=== PATIENT | female | born 1955 | race Asian ===

== ENCOUNTER 2018-09-30 01:09 | Emergency (ER) | payer MEDICAID, SELFPAY ==
[2018-09-30 01:10] VITALS: BP 205/86; PULSE 84; RESP 16; TEMP 36.4; O2SAT 100; BMI 30.4
--- NOTE | 2018-09-30 01:53 | CT_ITS ---
STUDY: CT BRAIN WITHOUT CONTRAST REASON FOR EXAM: Female, 63 years old. Headache, elevated blood pressure, pressure behind eyes. History of hypertension and diabetes. RADIATION DOSAGE (If Supplied By Facility): CTDIvol = ( 44.99 ) mGy, DLP = ( 846.73 ) mGycm TECHNIQUE: Transaxial CT imaging of the brain was performed without administration of intravenous contrast material. Individualized dose optimization techniques were used for this CT. COMPARISON: No relevant priors. FINDINGS: Normal soft tissue structures. Probable right frontal skin tach. Normal calvarium. Normal size ventricles and extra-axial spaces for the patient's age. Normal white matter tracts of the cerebral hemispheres. Normal basal ganglia and thalami. Normal brainstem. Normal cerebellum. There is no intracranial hemorrhage. There are no findings of an acute ischemic infarction. Normal visualized paranasal sinuses. The bilateral mastoid air cells are clear. Intracranial arteriosclerosis of the carotid and vertebral arteries. CT/Brain/Head without Contrast IMPRESSION: There is no acute intracranial pathology. Electronically Signed: Natalia Beckman MD at 2:57 EDT , Service support ,
--- NOTE | 2018-09-30 01:53 | EKG12_ITS ---
Test Reason : Blood Pressure : / mmHG Vent. Rate : 081 BPM Atrial Rate : 081 BPM P-R Int : 156 ms QRS Dur : 076 ms QT Int : 392 ms P-R-T Axes : 051 -18 034 degrees QTc Int : 455 ms Normal sinus rhythm Minimal voltage criteria for LVH, may be normal variant Borderline ECG Confirmed by FENG COYLE, RADHA ([id number]), art editor AUGUSTO ALEJANDRE ([id number]) on 10/03/2018 11:39:34 AM Referred By: MARISELA Confirmed By:RADHA TONEY MD
--- NOTE | 2018-09-30 01:53 | RAD_ITS ---
STUDY: X-RAY CHEST REASON FOR EXAM: Female, 63 years old. Chest pain TECHNIQUE: Single AP portable view of the chest. COMPARISON: None. FINDINGS: Mild compression of the basilar parenchyma. There is no focal parenchymal abnormality. There is no demonstrated pleural abnormality. There is mild cardiac enlargement. Normal mediastinum and tricia. Normal visualized pulmonary arteries. There is atherosclerotic calcification of the aortic arch with tortuosity. Normal visualized thoracic spine. Normal visualized ribs, clavicles, and shoulders. There is no demonstrated abnormality of the visualized soft tissue structures of the upper abdomen. RAD/Chest 1 View IMPRESSION: Mild cardiac enlargement. No pulmonary edema, congestive heart failure or confluent pneumonia. Electronically Signed: Natalia Beckman MD at 2:16 EDT , Service support ,
[2018-09-30 02:08] VITALS: O2SAT 97
[2018-09-30 02:19] LABS: Absolute Neutrophil Count 3.3 X10^3/uL (2.0-7.7); Basophil# 0.04 X10^3/uL; Basophil% 0.6 % (0-1); Eosinophil# 0.43 X10^3/uL; Eosinophils% 6.3 % (0-5); Hematocrit 44.9 % (37-47); Hemoglobin 15.7 g/dl (12.0-15.0); Mean Corpuscular Hgb 28.6 pg (27.0-32.0); Mean Corpuscular Volume 81.8 fL (81-99); Mean Platelet Vol. 10.3 fl (6.2-12.0); Monocyte# 0.69 X10^3/uL; Monocyte% 10.1 % (0-10); Neutrophil # 3.28 X10^3/uL (2.7-7.7); Neutrophil % 47.9 % (47-70); Platelet Count 133 K/mm3 (150-450); RBC Distribution Width CV 12.3 % (11.6-14.6); RBC Distribution Width SD 37.2 fl (35.1-43.9); Red Blood Count 5.49 M/mm3 (4.2-5.4); White Blood Count 6.9 K/mm3 (4.4-11.0)
[2018-09-30 02:23] LABS: POSITIVE COUNT NO; POSITIVE DIFFERENTIAL NO; POSITIVE MORPHOLOGY NO
[2018-09-30 02:27] LABS: Prothrombin Time (Protime)PT. 13.2 SECONDS (11.7-14.9)
[2018-09-30 02:40] LABS: Anion Gap 4 (5-15); BUN 6 mg/dL (7-18); BUN/Creat Ratio 8.6 RATIO (10-20); Calcium,Total 9.6 mg/dL (8.5-10.1); Chloride 110 mmol/L (98-107); EST Glomerular Filtration Rate 90 mL/min (>60); Est Glom Filt Rate - Afr Amer 109 mL/min (>60); Estimated Creatinine Clearance 87.79 ml/min; Glucose 128 mg/dL (74-106); Potassium 3.8 mmol/L (3.5-5.1); Sodium Level 142 mmol/L (136-145)
--- NOTE | 2018-09-30 03:11 | ED.VISSUMM ---
- ER Visit Summary Date of Service: 09/30/18 Chief Complaint: High blood pressure History of Present Illness: The patient is a 63 F who is here for high blood pressure. She has not been feeling well. She had a headache, neck and back pain, she felt some pain in her left shoulder, and she has a cough. Because she was not feeling well, her family checked her blood pressure and it was 175/103. Patient has a history of hypertension and takes Cozaar. She has been compliant and has not missed doses. Denies vision changes. Denies facial droop. Denies speech changes. Denies focal weakness or numbness. Denies trouble with balance. Denies vomiting. Denies chest pain or shortness of breath. Please note that the patient's family helps translate at the patient's request. Physical Examination: Blood pressure 205/86. Otherwise vitals unremarkable. Patient is alert and oriented. No acute distress. HEENT exam unremarkable. Cranial nerves grossly intact. Neck nontender with good range of motion. Heart regular. Lungs clear. Abdomen soft. Extremities nontender with no edema. Good strength and sensation. No focal or lateralizing neurologic findings. Test Results: EKG showed sinus rhythm at a rate of 81. Chest x-ray showed mild cardiomegaly. CT brain showed no acute findings. Hemoglobin 15.7 and platelets 133. Chloride 110 and glucose 128. Coags normal. Troponin normal. Emergency Department Course and Treatment: Patient was placed on a monitor. Repeat blood pressure was 163/96. Symptoms had improved. Her work-up was unremarkable for anything acute. It showed chronic changes. Nothing to explain her symptoms. She continued to complain of a dry cough and it was making her backache. She had an unremarkable chest x-ray. No leukocytosis. No sputum or fevers. Nothing to suggest PE. Patient's cough will be treated with Tessalon and her pain will be treated with Tylenol. I believe these are safe for her. I believe that if we get her symptoms better controlled, she will have a better blood pressure. She will continue her blood pressure medicine at home and follow-up with your doctor for recheck. Return for any new or worsening issues. Risks of untreated or very severe high blood pressure were discussed. Patient will return immediately if she has any issues. Treatment Plan: As above Disposition: Discharge Impression: 1. Hypertension 2. Cough 3. Headache This note was generated with [employer] dictation software. It may contain incorrect words, spelling, and punctuation that were not noted in review of the chart prior to signing ED Disposition - Plan for ED Patient: Referrals: Kevin Barcenas MD [Primary Care Provider] -
--- NOTE | 2018-09-30 03:16 | ED.DEP ---
ED Disposition - Plan for ED Patient: Instructions: ED HTN Established Prescriptions: Acetaminophen [Tylenol Extra Strength] 500 mg PO Q6H PRN PRN #30 tab PRN Reason: Pain Benzonatate [Tessalon Perle] 200 mg PO TID PRN PRN #20 cap PRN Reason: Cough Referrals: Kevin Barcenas MD [Primary Care Provider] -
[2018-09-30] MEDS: Acetaminophen 500 MG Tablet 1000 MG PO (03:25)
[2018-09-30 03:26] VITALS: BP 159/96; PULSE 72; RESP 16; O2SAT 97
== END 2018-09-30 03:27 | disposition home or self-care (01) ==
PROVIDERS: Emergency Provider Emergency Medicine; Family Provider Internal Medicine; PCP Internal Medicine
DX: I10 Essential (primary) hypertension (principal); R05 Cough; R51 Headache; K21.9 Gastro-esophageal reflux disease without esophagitis; I51.7 Cardiomegaly; Z72.0 Tobacco use
CPT/HCPCS: 70450; 71045; 80048; 84484; 85025; 85610; 85730; 93005; 99285; A4216